=== PATIENT | female | born 1950 | race Caucasian/White ===

== ENCOUNTER 2018-08-29 15:13 | Emergency (ER) | payer OTHER, BC ==
--- NOTE | 2018-08-29 15:23 | EDPHY ---
HPI/HX/ROS/PE/MDM Narrative: CHIEF COMPLAINT: Abdominal pain, vomiting, diarrhea HPI: The patient is a 67 y/o female with a history of a cholecystectomy and interstitial cystitis complaining of upper abdominal pain, onset 3 days ago. She arrived to [place] from [place] 4 days ago to visit her daughter. On Saturday, 3 days ago, she woke up in the middle of the night and "felt sick to [ her] stomach" and initially had several episodes of vomiting. This was then followed by several episodes of diarrhea, chills, and sweats. Yesterday, she developed the upper abdominal pain that felt like she had been "punched" in her upper abdomen. Due to her symptoms, she has had a decreased appetite and has only had a small amount of clarisa emily and apple juice for the last 3 days. Today she presented to an urgent care who became concerned that the patient had elevated LFT's, so they sent the patient to the emergency department. She was given 1.5L IV NS and Zofran which mildly improved her symptoms as well as prescriptions for Nexium and a sodium potassium tablet. The patient's grandchildren, who she is staying with, recently had the stomach flu. No headache, chest pain, shortness of breath, numbness, paresthesias. REVIEW OF SYSTEMS: Aside from elements discussed in the HPI, a comprehensive 10 system review of systems is otherwise negative. PMH: Cholecystectomy (20 years ago), interstitial cystitis SOCIAL HISTORY: Daughter at bedside, originally from [place], , retired PHYSICAL EXAM: General: Patient is alert, in no acute distress. ENT: Eyes are normal to inspection. ENT inspection normal. Neck: Normal inspection. Full range of motion. Respiratory: No respiratory distress. Breath sounds normal bilaterally. Cardiovascular: Regular rate and rhythm. Strong peripheral pulses. Normal cap refill. Abdomen: Mild epigastric tenderness to palpation. There are no peritoneal signs. There are normal bowel sounds. Back: Normal to inspection. No tenderness to palpation. Skin: Decreased skin turgor. Normal color. No rash. Warm and dry. Extremities: Normal appearance. Full range of motion. Neuro: Oriented x3. Normal motor function. Normal sensory function. ED Course: 1641: I spoke with the radiologist regarding the patient's abdominal ultrasounds. The patient has a common bile duct dilatation but an otherwise normal exam. 1649: I consulted with Dr. Levine, general surgeon, regarding this patient. This patient is not a candidate for surgery of admission; she is safe to be discharged home. She will need to follow up with a business department chair when she returns home. 1650: Reassessed patient and discussed imaging studies. She is feeling mildly better after 1L IV NS. I have prescribed her Zofran to travel home with. I have advised her to follow up with a business department chair and have follow up LFT's when she returns home to [place]. Return precautions provided; patient is comfortable with this plan. MDM: This patient presents with vomiting and diarrhea, but specifically because she was advised to go the ED secondary to mildly elevated LFTs. Her workup is negative with the exception of some biliary dilatation. Her symptoms seem highly consistent with norovirus, and there is no evidence of bowel obstruction , sepsis, appendicitis or pancreatitis. - Data Points Imaging Results: Imaging Impressions Abdomen Ultrasound 08/29/18 15:41 Impression: 1. Prior cholecystectomy. 2. Dilatation of the extrahepatic and intrahepatic biliary ductal system may be secondary to prior cholecystectomy or obstruction. Correlation with LFTs recommended. 3. Fatty hepatic replacement. Results called to Dr. Hendrix at 4:40 PM. Abdomen X-Ray 08/29/18 15:41 Impression: No evidence for obstruction or perforation. Imaging: Discussed imaging studies w/ order desk caller Radiologist, I viewed and interpreted images myself Medications Given: Discontinued Medications Sodium Chloride (Ns) 1,000 mls @ 0 mls/hr IV EDNOW ONE; Wide Open PRN Reason: Protocol Stop: 08/29/18 15:42 Last Admin: 08/29/18 16:32 Dose: 1,000 mls General Time Seen by Provider: 08/29/18 15:21 Initial Vital Signs: Initial Vital Signs Temperature (C) 36.8 C 08/29/18 15:20 Heart Rate 76 08/29/18 15:20 Respiratory Rate 18 08/29/18 15:20 Blood Pressure 129/89 H 08/29/18 15:20 O2 Sat (%) 96 08/29/18 15:20 O2 Delivery Mode Room Air Allergies/Adverse Reactions: Penicillins Allergy (Verified 08/29/18 15:20) Sulfa (Sulfonamide Antibiotics) Adverse Reaction (Verified 08/29/18 15:20) Home Medications: Medication Instructions Recorded Calcium Carbonate/Vitamin D3 1 each PO 08/17/11 [Os-Carlos 500+D Tablet] Folic Acid mg PO 08/17/11 GLUCOSAMINE HCL/CHONDR RODRIGUEZ A NA 1 each PO 08/17/11 [Glucosamine-Chondr Caplet] Multivitamin [Animal Shapes] 1 each PO 08/17/11 Dunellen-3 Fatty Acids/Fish Oil [Fish 1 each PO 08/17/11 Oil 1,000 mg Softgel] Pentosan Polysulfate Sodium mg PO 08/17/11 [Elmiron] Raloxifene HCl [Evista] mg PO DAILY 08/17/11 Tolterodine Tartrate [Detrol] mg PO 08/17/11 Ondansetron Odt [Zofran Odt] 4 mg PO Q4PRN PRN #10 tab 08/29/18 Departure - Departure Disposition: Home, Routine, Self-Care Clinical Impression: Dehydration Diarrhea Qualifiers: Diarrhea type: unspecified type Qualified Code(s): R19.7 - Diarrhea, unspecified Vomiting Qualifiers: Vomiting type: unspecified Vomiting Intractability: intractable Nausea presence : with nausea Qualified Code(s): R11.2 - Nausea with vomiting, unspecified Condition: Good Instructions: Dehydration (ED), Acute Nausea and Vomiting (ED), Acute Diarrhea (ED), Abdominal Pain (ED) Additional Instructions: Take Zofran as prescribed. Recheck your liver function tests in the next 2-3 days. Follow up with your business department chair when you return home. Drink plenty of fluids. Return to the emergency department immediately for high fever, chest pain, difficulty breathing, abdominal pain or other worsening of condition. Referrals: Donaldo Bermudez MD [Medical Doctor] - As per Instructions Prescriptions: Ondansetron Odt [Zofran Odt] 4 mg PO Q4PRN PRN #10 tab PRN Reason: Nausea Report Scribed for: Alex Hendrix Report Scribed by: Anya Schwarz Date of Report: 08/29/18 Time of Report: 15:23 Physician Review and Approval Statement: Portions of this note were transcribed by an ED scribe. I personally performed the history, physical exam, and medical decision making; and confirm the accuracy of the information in the transcribed note.
[2018-08-29] MEDS ORDERED: NS 1,000 ML IV ONE (15:41)
[2018-08-29 17:27] VITALS: BP 125/79
== END 2018-08-29 17:29 | disposition home or self-care (01) ==
DX: R11.10 Vomiting, unspecified (principal); R19.7 Diarrhea, unspecified; R10.9 Unspecified abdominal pain; E86.0 Dehydration